=== PATIENT | female | born 1965 | race Hispanic/Latino ===

== ENCOUNTER 2022-08-07 10:02 | Outpatient (CLI) | payer OTHER ==
--- NOTE | 2022-08-07 11:38 | XRay Report ---
BILATERAL SHOULDERS 3 VIEWS INDICATION: Bilateral shoulder pain. COMPARISON: None. IMPRESSION: No acute osseous or soft tissue abnormality. Mild osteoarthritic changes are identifi ed at both shoulders. LUMBOSACRAL SPINE 2 VIEWS INDICATION: BACK PAIN. COMPARISON: None. IMPRESSION: Normal alignment. Mild discogenic DJD and facet arthropathy are identified at all level s. The SI joints are unremarkable. No acute osseous or soft tissue abnormality. Diffuse aortic calci fications are noted. BILATERAL KNEES 2 VIEWS INDICATION: Bilateral knee pain. COMPARISON: None. IMPRESSION: No acute osseous or soft tissue abnormality. Mild osteoarthritic changes are identifi ed bilaterally which are most pronounced in the patellofemoral spaces. Small bilateral joint effusion s. Signer Name: Rodríguez Oesi Jr, MD Signed: 08/07/2022 11:34 AM Workstation Name: [id number]
== END 2022-08-07 10:03 | disposition home or self-care (01) ==
LOC: XRAY 10:02 → LAB 10:02 → XRAY 10:03
PROVIDERS: ATTEND Internal Medicine
DX: M19.012 Primary osteoarthritis, left shoulder (principal); M19.011 Primary osteoarthritis, right shoulder; M17.0 Bilateral primary osteoarthritis of knee; M25.462 Effusion, left knee; M25.461 Effusion, right knee; I70.0 Atherosclerosis of aorta; M47.816 Spondylosis without myelopathy or radiculopathy, lumbar region
CPT/HCPCS: 72100